=== PATIENT | female | born 1945 | race Caucasian/White ===

== ENCOUNTER 2020-09-27 19:08 | Emergency (ER) | payer MEDICARE, OTHER ==
[2020-09-27] MEDS ORDERED: Bacitracin Oint 1 GM U/D Packet TOP ONE (19:13)
[2020-09-27] MEDS ORDERED: Diphtheria,Pertussis(Acell),Tetanus Vaccine 0.5 ML Syringe IM ONE (19:30)
--- NOTE | 2020-09-27 20:22 | EDM.PDOC ---
ED HPI GENERAL MEDICAL PROBLEM - General Chief Complaint: Laceration Stated Complaint: CUT THUMB Time Seen by Provider: 09/27/20 19:30 Source of Information: Reports: Patient History Limitations: Reports: No Limitations - History of Present Illness INITIAL COMMENTS - FREE TEXT/NARRATIVE: Luli is a 75-year-old female presenting to the ED for evaluation of a laceration to the thenar eminence of the right thumb. The patient was try to get her dog out from under the deck and stepped backwards falling over a rock and landing on another rock causing the laceration. Is still having a modest amount of bleeding from the wound which measures 3.4 cm. She denies any numbness or pain with movement of the hand. Her tetanus is not up-to-date. 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(s) - Related Data Allergies Allergy/AdvReac Type Severity Reaction Status Date / Time No Known Allergies Allergy Verified 09/27/20 19:35 Home Meds: Home Meds Aspirin [Halfprin] 81 mg PO DAILY 09/27/20 [History] Cholecalciferol (Vitamin D3) [Vitamin D] 5,000 unit PO DAILY 09/27/20 [History] EPINEPHrine [Epinephrine] 0.1 mg IJ ASDIRECTED 09/27/20 [History] Fish Oil/[place]-3 Fatty Acids [Fish Oil 1,000 MG] 1 tab PO DAILY 09/27/20 [History] Glucosam/Chond/Collagen/Hyalur [Glucosamine Chondroitin] 1 cap PO BID 09/27/20 [History] atorvaSTATin Calcium [Atorvastatin Calcium] 20 mg PO DAILY 09/27/20 [History] hydroCHLOROthiazide [Hydrochlorothiazide] 12.5 mg PO DAILY 09/27/20 [History] Past Medical History HEENT History: Reports: Cataract Cardiovascular History: Reports: High Cholesterol, Hypertension Respiratory History: Reports: Asthma [employer] History: Reports: Musculoskeletal History: Reports: Arthritis - Infectious Disease History Infectious Disease History: Reports: Chicken Pox, Influenza, Measles, Mumps - Past Surgical History HEENT Surgical History: Reports: Cataract Surgery Social & Family History - Tobacco Use Tobacco Use Status *Q: Never Tobacco User - Caffeine Use Caffeine Use: Reports: Coffee - Recreational Drug Use Recreational Drug Use: Yes ED ROS GENERAL - Review of Systems Review Of Systems: See Below Constitutional: Reports: No Symptoms HEENT: Reports: No Symptoms Respiratory: Reports: No Symptoms Cardiovascular: Reports: No Symptoms Endocrine: Reports: No Symptoms GI/Abdominal: Reports: No Symptoms : Reports: No Symptoms Musculoskeletal: Reports: Hand Pain, Other (Laceration to the thenar eminence of the right hand measuring 3.4 cm) Skin: Reports: Wound (Laceration to the thenar eminence of the right hand) Neurological: Reports: No Symptoms Psychiatric: Reports: No Symptoms Hematologic/Lymphatic: Reports: No Symptoms Immunologic: Reports: No Symptoms ED EXAM, SKIN/RASH Exam: See Below Exam Limited By: No Limitations General Appearance: Alert, No Apparent Distress Head: Atraumatic, Normocephalic Neck: Normal Inspection Extremities: Normal Range of Motion, Other (Mild tenderness over the thenar eminence of the right hand. There is a 3.4 cm laceration into the muscle of the hand. There is a avulsion type laceration with a flap that appears to still be viable.) Neurological: Alert, Oriented, Normal Cognition, No Motor/Sensory Deficits Psychiatric: Normal Affect, Normal Mood Skin: Wound/Incision (Serration right thenar eminence) Location, Skin: Upper Extremity, Right Characteristics: Other (Avulsion type laceration) Associated features: Tenderness ED SKIN PROCEDURES - Laceration/Wound Repair Right Hand Appearance: Muscle Distal NVT: Neuro & Vascular Intact, No Tendon Injury Anesthetic Type: Local Local Anesthesia - Lidocaine (Xylocaine): 1% Plain Local Anesthetic Volume: 4cc Skin Prep: Saline Exploration/Debridement/Repair: Wound Explored, In a Bloodless Field, Explored to Base Closed with: Sutures Lac/Wound length In cm: 3.4 Suture Size: 4-0 # of Sutures: 8 Suture Type: Nylon, Interrupted Sterile Dressing Applied: Nurse Tetanus Status Addressed: Yes Complications: No Course - Vital Signs Last Recorded V/S: Last Vital Signs Temp 36.3 C 09/27/20 19:41 Pulse 74 09/27/20 19:41 Resp 16 09/27/20 19:41 BP 147/44 H 09/27/20 19:41 Pulse Ox 94 L 09/27/20 19:41 - Orders/Labs/Meds Orders: Active Orders 24 hr Category Date Time Status Vaccines to be Administered [RC] PER UNIT ROUTINE Care 09/27/20 19:31 Active Meds: Medications Discontinued Medications Generic Name Dose Route Start Last Admin Trade Name Freq PRN Reason Stop Dose Admin Bacitracin 1 dose 09/27/20 19:13 09/27/20 19:46 Bacitracin Oint 1 Gm U/D Packet TOP 09/27/20 19:14 1 dose ONETIME ONE Administration Diphtheria/Tetanus/Acell Pertussis 0.5 ml 09/27/20 19:30 09/27/20 19:46 Diphtheria,Pertussis(Acell),Tetanus Vaccine 0.5 Ml Syringe IM 09/27/20 19:31 0.5 ml .ONCE ONE Administration Lidocaine HCl 5 ml 09/27/20 19:13 09/27/20 19:46 Lidocaine 1% 5 Ml Sdv INJECT 09/27/20 19:14 5 ml ONETIME ONE Administration - Re-Assessments/Exams Free Text/Narrative Re-Assessment/Exam: 09/27/20 20:20 patient sustained a laceration to the thenar eminence of the right hand. This measured 3.4 cm. It was washed out thoroughly, examined to the base, and then closed using 4-0 Ethilon requiring eight simple interrupted sutures. The flap was realigned with the surrounding tissue. Patient tolerated the procedure well without complication. A light coating of bacitracin was applied and over that a sterile dressing. The patient was instructed to keep the wound clean and dry for the next 24 hours and then keep it dressed after that. Sutures may be removed in 10 days which can be done under local clinic. Indications return to the ED were discussed. Departure - Departure Time of Disposition: 20:21 Disposition: Home, Self-Care 01 Clinical Impression: Laceration of right hand without complication, excluding fingers Qualifiers: Encounter type: initial encounter Qualified Code(s): S61.411A - Laceration without foreign body of right hand, initial encounter - Discharge Information Instructions: Laceration Care, Adult Referrals: Letty Ochoa MD [Primary Care Provider] - Care Plan Goals: Please keep an eye on the wound for any signs of infection. You should keep the wound dry for the next 24 hours. You may apply a dressing to the wound if it gets soiled or wet. Sutures will need to be removed in 10 days which can be done at your local clinic. Sepsis Event Note (ED) - Evaluation Sepsis Screening Result: No Definite Risk - Focused Exam Vital Signs: Vital Signs Temp Pulse Resp BP Pulse Ox 09/27/20 19:41 36.3 C 74 16 147/44 H 94 L 09/27/20 19:35 36.3 C 74 16 147/44 H 94 L - Problem List & Annotations (1) Laceration of right hand without complication, excluding fingers SNOMED Code(s): 653757147, [id number] Code(s): S61.411A - LACERATION WITHOUT FOREIGN BODY OF RIGHT HAND, INIT ENCNTR Status: Acute Priority: Medium Current Visit: Yes Qualifiers: Encounter type: initial encounter Qualified Code(s): S61.411A - Laceration without foreign body of right hand, initial encounter - Problem List Review Problem List Initiated/Reviewed/Updated: Yes - My Orders Last 24 Hours: My Active Orders 09/27/20 19:31 Vaccines to be Administered [RC] PER UNIT ROUTINE - Assessment/Plan Last 24 Hours: My Active Orders 09/27/20 19:31 Vaccines to be Administered [RC] PER UNIT ROUTINE
== END 2020-09-27 20:48 | disposition home or self-care (01) ==
LOC: JP.ED 19:08
DX: S61.411A Laceration without foreign body of right hand, initial encounter (principal); E78.00 Pure hypercholesterolemia, unspecified; I10 Essential (primary) hypertension; J45.909 Unspecified asthma, uncomplicated; Z79.82 Long term (current) use of aspirin; Z79.899 Other long term (current) drug therapy; Z23 Encounter for immunization; W22.8XXA Striking against or struck by other objects, initial encounter
CPT/HCPCS: 12002; 90471; 90715; 99282-25